=== PATIENT | female | born 1990 | race Caucasian/White ===

== ENCOUNTER → 2022-04-15 16:03 | Outpatient (CLI) | payer MEDICAID, SELFPAY ==
[2022-04-15 19:53] LABS: HCG,Quantitative 21102 mIU/ml (0-5.42)
[2022-04-17 09:01] LABS: Progesterone 11.8 ng/mL (.)
[2022-04-17 22:08] LABS: Neisseria gonorrhoeae, NAA Negative (Negative)
== END ==
PROVIDERS: PCP Obstetrics & Gynecology; Visit Provider Obstetrics & Gynecology
DX: Z34.90 Encounter for supervision of normal pregnancy, unspecified, unspecified trimester (principal)
CPT/HCPCS: 36415; 84144; 84702; 87491; 87591

== ENCOUNTER → 2022-04-18 12:44 | Outpatient (CLI) | payer MEDICAID, SELFPAY ==
[2022-04-18 15:51] LABS: HCG,Quantitative 48035 mIU/ml (0-5.42)
[2022-04-19 08:15] LABS: Progesterone 17.7 ng/mL (.)
== END ==
PROVIDERS: Visit Provider Obstetrics & Gynecology
DX: Z34.90 Encounter for supervision of normal pregnancy, unspecified, unspecified trimester (principal)
CPT/HCPCS: 36415; 84144; 84702

== ENCOUNTER → 2022-04-29 14:45 | Outpatient (CLI) | payer MEDICAID, SELFPAY ==
[2022-04-29 16:51] LABS: Basophils # 0.1 K/mm3 (0-0.2); Basophils % 0.9 % (0.1-2.0); Eosinophils # 0.1 K/mm3 (0.0-0.4); Eosinophils % 1.5 % (0.1-12.0); Hematocrit 37.7 % (37.0-47.0); Hemoglobin 12.8 g/dL (12.2-16.2); Lymphocytes # 1.1 K/mm3 (0.7-4.5); Lymphocytes % 17.9 % (10-50); Mean Corpuscular HGB Conc 33.9 g/dL (31.8-35.4); Mean Corpuscular Hemoglobin 30.3 pg (27.0-31.2); Mean Corpuscular Volume 89.4 fl (81-99); Mean Platelet Volume 10.5 fl (7.4-10.4); Monocytes # 0.3 K/mm3 (0.1-1.0); Monocytes % 3.9 % (1.7-9.3); Neutrophils # 4.9 K/mm3 (1.8-7.8); Neutrophils % 75.9 % (37.0-80.0); Platelet Count 188 K/mm3 (142-424); Red Blood Count 4.22 M/mm3 (4.20-5.40); White Blood Count 6.4 K/mm3 (4.8-10.8)
[2022-05-01 08:23] LABS: HIV Screen 4th Generation wRfx Non Reactive (Non Reactive); Hepatitis B Surface Antigen Negative (Negative); Hepatitis C Antibody 0.2 s/co ratio (0.0-0.9); Rubella Antibodies, IgG 1.23 index (Immune >0.99)
[2022-05-01 10:12] LABS: Rapid Plasma Reagin Ab Titer Non Reactive (NonRea<1:1)
== END ==
PROVIDERS: Visit Provider Obstetrics & Gynecology
DX: Z34.90 Encounter for supervision of normal pregnancy, unspecified, unspecified trimester (principal)
CPT/HCPCS: 36415; 85025; 86592; 86703; 86762; 86850; 87340; 87380; G0432

== ENCOUNTER → 2022-07-29 13:51 | Outpatient (CLI) | payer MEDICAID, SELFPAY ==
--- NOTE | 2022-07-29 13:51 | US_ITS ---
FINAL REPORT CLINICAL HISTORY: anatomy, Ob complete FINDINGS: There is a single live intrauterine gestation. Presentation is breech. The cervix is closed and measures 4.6 cm. Placenta is anterior, grade 1. Three-vessel cord with satisfactory umbilical cord insertion. Four-chamber heart is noted. AMNIOTIC FLUID: Appropriate amount. MEASUREMENTS: ULTRASOUND AGE: 20 weeks 4 days. GESTATION AGE: 20 weeks 5 days. ESTIMATED WEIGHT: 364 g GROWTH PERCENTILE: 38% LMP percentile BPD: 4.8 cm corresponding with 20 weeks 5 days. OFD: 6.1 cm corresponding with 20 weeks 5 days. HC: 17.3 cm corresponding with 19 weeks 6 days. AC: 15.5 cm corresponding with 20 weeks 5 days. FL: 3.4 cm corresponding with 20 weeks 5 days. CEREBELLUM: 2.0 cm corresponding with 20 weeks 5 days. HC/AC: 1.11 CI: 79% FL/BPD: 70% FL/AC: 22% IMPRESSION: Single living IUP with an ultrasound age of 20 weeks 4 days. No gross anomaly identified. Reviewed, Interpreted and Dictated by Sang Marina MD Transcribed by Martah Larsen Authenticated and [facility]
== END ==
PROVIDERS: PCP Obstetrics & Gynecology; Visit Provider Obstetrics & Gynecology
DX: Z34.90 Encounter for supervision of normal pregnancy, unspecified, unspecified trimester (principal)
CPT/HCPCS: 76811

== ENCOUNTER → 2022-09-05 09:36 | Outpatient (CLI) | payer MEDICAID, SELFPAY ==
[2022-09-05 10:06] LABS: Basophils % 0.4 % (0.1-2.0); Eosinophils # 0.2 K/mm3 (0.0-0.4); Eosinophils % 1.6 % (0.1-12.0); Hematocrit 33.4 % (37.0-47.0); Hemoglobin 11.6 g/dL (12.2-16.2); Lymphocytes # 1.4 K/mm3 (0.7-4.5); Lymphocytes % 15.3 % (10-50); Mean Corpuscular HGB Conc 34.7 g/dL (31.8-35.4); Mean Corpuscular Hemoglobin 32.4 pg (27.0-31.2); Mean Corpuscular Volume 93.5 fl (81-99); Mean Platelet Volume 9.3 fl (7.4-10.4); Monocytes # 0.4 K/mm3 (0.1-1.0); Monocytes % 3.9 % (1.7-9.3); Neutrophils # 7.3 K/mm3 (1.8-7.8); Neutrophils % 78.7 % (37.0-80.0); Platelet Count 203 K/mm3 (142-424); Red Blood Count 3.57 M/mm3 (4.20-5.40); Red Cell Distribution Width 14.1 % (11.5-17.5); White Blood Count 9.2 K/mm3 (4.8-10.8)
[2022-09-05 10:19] LABS: Amphetamine/Metha Screen,Urine Negative ng/ml (<1000); Barbiturates Screen,Urine Negative ng/ml (<200)
[2022-09-05 10:20] LABS: Benzodiazepines Screen,Urine Negative ng/ml (<200); Cannabinoid Screen,Urine Negative ng/ml (<50)
[2022-09-05 10:21] LABS: Cocaine Screen,Urine Negative ng/ml (<300)
[2022-09-05 10:22] LABS: Glucose,Fasting 78 mg/dl (74-100)
[2022-09-05 10:22] LABS: Methadone Screen,Urine Negative ng/ml (<300); Opiate Screen,Urine Negative ng/ml (<300)
[2022-09-05 10:23] LABS: Phencyclidine Screen,Urine Negative ng/ml (<25)
[2022-09-05 11:46] LABS: Glucose 1 Hour 96 mg/dL (74-100)
[2022-11-11 20:05] LABS: Buprenorphine POSITIVE
[2022-11-11 20:06] LABS: Buprenorphine POSITIVE; Norbuprenorphine POSITIVE
== END ==
PROVIDERS: PCP Family Medicine; Visit Provider Obstetrics & Gynecology
DX: Z34.90 Encounter for supervision of normal pregnancy, unspecified, unspecified trimester (principal)
CPT/HCPCS: 36415; 80305; 80348; 82951; 85025

== ENCOUNTER → 2022-12-04 07:47 | Outpatient (CLI) | payer MEDICAID, SELFPAY ==
[2022-12-04 08:10] LABS: Basophils # 0.1 K/mm3 (0-0.2); Basophils % 0.9 % (0.1-2.0); Eosinophils # 0.1 K/mm3 (0.0-0.4); Eosinophils % 1.9 % (0.1-12.0); Hematocrit 35.6 % (37.0-47.0); Lymphocytes # 1.4 K/mm3 (0.7-4.5); Lymphocytes % 24.6 % (10-50); Mean Corpuscular HGB Conc 33.6 g/dL (31.8-35.4); Mean Corpuscular Hemoglobin 30.1 pg (27.0-31.2); Mean Corpuscular Volume 89.7 fl (81-99); Mean Platelet Volume 9.2 fl (7.4-10.4); Monocytes # 0.4 K/mm3 (0.1-1.0); Neutrophils # 3.8 K/mm3 (1.8-7.8); Neutrophils % 66.5 % (37.0-80.0); Platelet Count 188 K/mm3 (142-424); Red Blood Count 3.97 M/mm3 (4.20-5.40); Red Cell Distribution Width 13.6 % (11.5-17.5); White Blood Count 5.8 K/mm3 (4.8-10.8)
[2022-12-04 09:09] LABS: Potassium 3.3 mmoL/L (3.5-5.1)
[2022-12-04 09:10] LABS: Alanine Aminotransferase 26 U/L (12-78); Albumin/Globulin Ratio 1.2 (1.1-1.8); Alkaline Phosphatase 148 U/L (38-126); Anion Gap 7.3 mEq/L (5-15); Aspartate Amino Transferase 37 U/L (14-36); Bilirubin,Total 0.7 mg/dl (0.2-1.3); Blood Urea Nitrogen 5 mg/dl (7-17); Calcium 8.1 mg/dl (8.4-10.2); Carbon Dioxide 25 mmol/L (22.0-30.0); Chloride 107 mmol/L (98-107); Estimated Glomerular Filt Rate 114 ml/min (>60); GFR (African American) 138 ML/MIN (>60); Globulin 2.6 g/dL (1.3-3.2); Glucose 83 mg/dl (74-100); Sodium 136 mmol/L (136-145); Total Protein,Serum 5.6 g/dl (6.3-8.2)
== END ==
PROVIDERS: PCP Family Medicine; Visit Provider Obstetrics & Gynecology
DX: Z34.90 Encounter for supervision of normal pregnancy, unspecified, unspecified trimester (principal)
CPT/HCPCS: 36415; 80053; 85025

== ENCOUNTER 2022-12-06 05:07 | Inpatient (IN) | payer MEDICAID, SELFPAY ==
[2022-12-06] VITALS (14 sets, daily range): BP systolic 101–118; BP diastolic 56–76; PULSE 57–81; RESP 15–18; TEMP 36.2–36.9; O2SAT 96–100; BMI 21.9
[2022-12-06 05:43] LABS: Coronavirus 19, PCR Not Detected (NotDetected)
[2022-12-06 05:44] LABS: Influenza A, PCR Not Detected (NotDetected); Influenza B, PCR Not Detected (NotDetected)
[2022-12-06 05:44] LABS: Microscopic, Urine URINE MICROSCOPIC (MICROSCOPIC)
[2022-12-06 05:45] LABS: Appearance,Urine CLEAR (Clear); Blood, Urine Negative (Negative); Glucose,Urine (UA) Negative (Negative); Ketones,Urine 1+ (Negative); Leukocyte Esterase,Urine TRACE (Negative); Nitrate,Urine Negative (Negative); PH,Urine 6.5 (5.0-8.5); Protein,Urine Negative (Negative)
[2022-12-06 05:48] LABS: Bilirubin,Urine Negative (Negative); Color,Urine Dark Yellow (Yellow)
[2022-12-06 05:56] LABS: Amphetamine/Metha Screen,Urine Negative ng/ml (<1000)
[2022-12-06 05:57] LABS: Barbiturates Screen,Urine Negative ng/ml (<200); Benzodiazepines Screen,Urine Negative ng/ml (<200)
[2022-12-06 05:58] LABS: Cannabinoid Screen,Urine Negative ng/ml (<50)
[2022-12-06 05:59] LABS: Cocaine Screen,Urine Negative ng/ml (<300); Methadone Screen,Urine Negative ng/ml (<300)
[2022-12-06 06:00] LABS: Opiate Screen,Urine Negative ng/ml (<300)
[2022-12-06 06:01] LABS: Phencyclidine Screen,Urine Negative ng/ml (<25)
[2022-12-06 06:04] LABS: Bacteria,Urine 1+ /lpf; Mucus,Urine 1+ /lpf
--- NOTE | 2022-12-06 07:07 | HMH.PHAINT1 ---
Pharmacy Intervention Comments: MEDICATION RECONCILIATION COMPLETED ON PATIENT USING EXTERNAL FILL HISTORY FROM PHARMACY AND GENE REPORT. -TERRIE HAGAN, RENAD
--- NOTE | 2022-12-06 07:20 | EXP.OB.APHP ---
OB - H&P: HPI Antepartum History of Present Illness Chief complaint: Scheduled repeat and tubal ligation History of present illness: Mrs Cleo Rosario is a 32 yo at 39w2d, based off of first trimester ultrasound, who presents to [facility] for scheduled repeat and tubal ligation. History of x 1. She is complete with childbearing and desires permanent sterilization. Baby is very active. Admits to irregular contractions. No leakage of fluid or vaginal bleeding. She has history of drug abuse and is on suboxone maintenance therapy. She has had good care. History of Present Criteria for establishing EDC:: based on 1st trimester US only care: good care Ultrasounds: normal mid trimester US Obstetrical complications: none Medical complications: none Labs Blood type: O (+) positive Rubella: immune RPR/VDRL: nonreactive HBsAG: negative [facility] Disclaimer: The information contained in this section may have been updated after the patient was seen, as this information can be updated by other users. Medical History (Updated 12/06/22 @ 07:28 by Sophy De Los Santos DO) Constipation with 39 completed weeks gestation Request for sterilization Social History Smoking Status: Current every day smoker tobacco type: e-cigarettes alcohol intake: never substance use type: denies use and former substance user current occupational status: unemployed Travel in the last 8 weeks: None Review of Systems Review of Systems Review of systems:: pertinent systems reviewed and negative unless documented below *Gastrointestinal Gastrointestinal: Reports constipation *Genitourinary Comments: + irregular contractions Meds Home Medications and Allergies Home Medications Medication Instructions Recorded Confirmed Type buprenorphine 2 mg-naloxone 0.5 mg 1 tab sublingual DAILY WITHDRAWAL 09/18/22 12/06/22 History sublingual tablet ondansetron 4 mg disintegrating 4 mg PO Q6HP PRN nausea and 12/06/22 12/06/22 History tablet vomiting vits no.126-ferrous fum 1 tab PO DAILY Supplement 12/06/22 12/06/22 History 28 mg iron-folic acid 800 mcg tablet (Classic ) New Prescriptions to Start Prescriptions: Allergies Allergy/AdvReac Type Severity Reaction Status Date / Time Penicillins Allergy Verified 11/28/22 13:50 OB - H&P: Exam Physical Exam Vital signs: Temp Pulse Resp BP Pulse Ox 98.5 F 74 18 114/70 100 12/06/22 05:52 12/06/22 05:52 12/06/22 05:52 12/06/22 05:52 12/06/22 05:52 Constitutional no acute distress Routine HEENT Exam Head: Present normocephalic and atraumatic Eye: Absent conjunctivae pink ENT: Present mucous membranes moist Routine Neck Exam Present full ROM Routine Respiratory Exam Present CTA bilaterally and normal respiratory effort Routine Cardiovascular Exam Present RRR Routine Abdominal Exam Present soft (Gravid); Absent tenderness Routine Rectal Exam Patient deferred: visual exam Routine Exam External: Present normal urethra appearance; Absent lesions, vulvar erythema or vulvar tenderness Routine Extremities Exam Present full ROM; Absent edema or calf tenderness Routine Neurological Exam Present alert, oriented X3 and moving all extremities Routine Psychiatric Exam Present normal affect and cooperative Detailed Labor and Delivery Exam Membranes: intact OB - Results Labs Labs: Urine 12/06/22 Range/Units 05:15 Urine Color Dark yellow (Yellow) Urine Appearance Clear (Clear) Urine pH 6.5 (5.0-8.5) Ur Specific [place] 1.020 (1.005-1.030) Urine Protein Negative (Negative) Urine Glucose (UA) Negative (Negative) OB - A/P Antepartum (1) with 39 completed weeks gestation: Status: Acute (2) History of : Status: Acute (3) Suboxone maintenance treatment complic
[2022-12-06 08:00] LABS: Cord Blood PH 7.31 (7.35-7.45)
--- NOTE | 2022-12-06 08:49 | EXP.OP.NOTE ---
Date of procedure: 12/06/22 Pre-op Diagnosis:: 1. with 39 completed weeks gestation 2. History of 3. Suboxone maintenance treatment complicating , antepartum 4. Constipation 5. Request for sterilization Post-op Diagnosis:: 1. with 39 completed weeks gestation 2. History of 3. Suboxone maintenance treatment complicating , antepartum 4. Constipation 5. Request for sterilization Procedure performed:: Repeat low transverse section with bilateral partial salpingectomy Surgeon:: Sophy De Los Santos DO Power System Engineer(s):: Gaye Starr MD [employer] EMERGENCY:: Hong Ennis Anesthesia: spinal Estimated blood loss (mL): 500 Clinical Note:: Mrs Cleo Rosario is a 32 yo at 39w2d, based off of first trimester ultrasound, who presents to [facility] for scheduled repeat and tubal ligation. History of x 1. She is complete with childbearing and desires permanent sterilization. Baby is very active. Admits to irregular contractions. No leakage of fluid or vaginal bleeding.? She has history of drug abuse and is on suboxone maintenance therapy. She has had good care. Operative findings:: 1. Live female baby (baby's name is Antonio Garibay) weighing 6 lb 10 oz, APGARS 8, 9 2. Eric Breeck presentation 3. Grossly normal appearing uterus, bilateral fallopian tubes and ovaries Operative note:: The risks, benefits and alternatives of the procedure were reviewed with the patient. Informed consent was obtained. Patient was taken to the operating room where spinal anesthesia was placed. The patient received 900 mg Clindamycin and Gentamicin 5 mg/kg preoperatively. Patient was placed in dorsal supine position with a leftward tilt. SCDs in place. Cantor catheter was inserted and was draining clear urine prior to the start of the procedure. heart tones were obtained. Patient was then prepped and draped in normal sterile fashion. Allis clamp test was performed to ensure adequate anesthesia. A skin incision was made along prior Pfannenstiel scar. This was carried through to underlying layer of fascia. Fascia was incised in midline, extended laterally with Tran scissors. Superior aspect of fascial incision was grasped with two Nancy clamps, elevated up, and rectus muscle dissected off bluntly and sharply with Tran scissors. The retcus muscle was then in the midline and the peritoneum was entered bluntly with a digit. Peritoneal incision was then extended superiorly and inferiorly with good visualization of the bladder. Calvin retractor was inserted. The lower uterine segment was incised in a transverse fashion. Clear amniotic fluid was noted. Baby was eric breech presentation. Baby was delivered using standard breech delivery techniques without difficulty. Mouth and nares were bulb suctioned. Spontaneous cry was noted. Delayed cord clamping was performed for 60 seconds. The umbilical cord was clamped and cut. The infant was handed to awaiting pediatric staff in stable condition. Dr. Mccoy was present. Apgars were 8(1 min), 9(5 min). Cord blood was obtained. Gentle traction on the umbilical cord and uterine fundal massage delivered the placenta. Placenta was intact. Uterus was cleared of all clots and debris with a moist laparotomy sponge. Corners of the uterine incision were grasped with Allis clamps. The uterine incision was reapproximated with # 1 Vicryl suture in a running, locked stitch. Second layer of the same stitch was used to imbricate the incision. Hemostasis was noted. Posterior cul-de-sac was cleaned with moist laparotomy sponge. (Uterus returned to the abdomen)Gutters cleared of all clots and debris with a moist laparotomy sponge. Attention was then turned to the left fallopian tube, which was grasped with a Orondo clamp and avascular space below the tube was entered using a hemostat. The tube was doubly clamped using hemostat and the portion between the clamps was removed using Metzenbaum sc
--- NOTE | 2022-12-06 09:00 | EXP.ANES.CKL ---
[facility] Disclaimer: The information contained in this section may have been updated after the patient was seen, as this information can be updated by other users. Medical History (Updated 12/06/22 @ 07:28 by Sophy De Los Santos DO) Constipation with 39 completed weeks gestation Request for sterilization Social History Smoking Status: Current every day smoker tobacco type: e-cigarettes alcohol intake: never substance use type: denies use and former substance user current occupational status: unemployed Travel in the last 8 weeks: None [facility] Anesthesia Checklist Patient Identification Patient Identification: Arm Band Structural Data Admitted From: Inpatient Planned Operative Procedure/s: Repeat C/S Consent for Planned Operative Procedure(s) Verified: Yes Verified Documents: Surgical Consent and History and Physical NPO Status Verified Time NPO: 00:00 Additional verifications Anesthesia Reactions: No Airway Assessment C-Spine Mobility Assessed: Yes TMJ Mobility Assessed: Yes Dentition: Good Dentition Neurological Assessment Level of Consciousness: Awake and Alert Anesthesia Plan Anesthesia Risk discussed: Yes Anesthesia Plan: Verified ASA Class: II Anesthesia Type: Spinal (with Bilateral TAP Block)
--- NOTE | 2022-12-06 09:01 | P.PNANES_ITS ---
[facility] Anesthesia Record Part I Anesthesia Record I Intake, IV Amount: 2,000 Estimated blood loss (mL): 500 Urine output (mL): 600 Blood Products used (#): none Blood Pressure: 106/71 SaO2: 96 Pulse Rate: 70 Respiratory Rate: 16 Temperature: 97.2 F Patient is:: Awake and Stable Stable to PACU at:: 08:55
--- NOTE | 2022-12-06 09:45 | HMH.PHAINT1 ---
Pharmacy Intervention Comments: VERIFIED HOME DOSE ON SUBOXONE. PER OB ORDER, PATIENT STATES SHE TAKES TWO OF THE 2MG/0.5MG SUBOXONE TABLETS DAILY. I CALLED THE [facility] AT [phone] AND SPOKE WITH WITH A NURSE. PATIENT IS TO TAKE ONE TABLET OF THE 2MG/0.5MG TABLET SL DAILY PER CURRENT PRESCRIPTION.
--- NOTE | 2022-12-06 10:30 | SUR.OPER ---
0751- Viable infant female born at this time 0758- cord pH of 7.31 per RT to JENNA Denis. Results relayed to MD De Los Santos
--- NOTE | 2022-12-06 10:57 | SW/DCPLANNER ---
Addendum entered by Isela Aldana 12/12/22 07:44: Infant cord screen is positive for Buprenorphine (prescribed). Original Note: I received a referral on this patient regarding suboxone use in . Patient is established with [facility] in [place]. Patient has been established with this clinic for six years. This has been verified by pharmacy. Patient delivered female (Antonio Olivas) on 12/06/22. 's father (Unruly Olivas 88) was not present at time of my visit but is involved per patient. Patient, Unruly, infant and other son (Jasvir Olivas 08/13/16) will reside at [address] [place] [address] in [place] [id number]. Patient's contact number is [phone]. Patient stated that she did have past Social Service involvement with first child due to substance abuse but case is now closed. Patient stated that she will be following up with WIC and is NOT interested in HANDS. Patient stated that she does have the following items: crib, carseat, clothing, diapers and will be . Patient is expected to discharge on 12/08/22 or 12/09/22. OB nursing staff (Conchita) stated that patient is appropriate with . I have asked OB staff to contact me if there are any changes prior to discharge.
--- NOTE | 2022-12-06 11:06 | P.PNANES_ITS ---
[facility] Anesthesia Record Part II Anesthesia Record Part II Discharge Time: 09:35 Destination: Obstetric PACU nurse assessment reviewed?: Yes Patient Condition:: Good Anesthesia Complications:: None Swallowing reflex intact?: Yes Cyanosis?: No Blood Pressure: 109/72 Pulse Rate: 71 Temperature: 97.2 F Mental Status: Alert & Oriented Pain level:: 0 Nausea and/or vomitting:: None Intake, IV Amount: 0
[2022-12-07] VITALS: BP 111/56; PULSE 68; RESP 18; TEMP 36.7; O2SAT 97
[2022-12-07 03:24] VITALS: BP 109/68; PULSE 63; RESP 17; TEMP 36.9; O2SAT 99
[2022-12-07 07:32] LABS: Basophils # 0.1 K/mm3 (0-0.2); Eosinophils # 0.1 K/mm3 (0.0-0.4); Eosinophils % 1.5 % (0.1-12.0); Hematocrit 37.6 % (37.0-47.0); Hemoglobin 12.5 g/dL (12.2-16.2); Lymphocytes # 1.2 K/mm3 (0.7-4.5); Lymphocytes % 13.2 % (10-50); Mean Corpuscular HGB Conc 33.2 g/dL (31.8-35.4); Mean Corpuscular Hemoglobin 30.4 pg (27.0-31.2); Mean Corpuscular Volume 91.7 fl (81-99); Mean Platelet Volume 10.1 fl (7.4-10.4); Monocytes # 0.4 K/mm3 (0.1-1.0); Monocytes % 4.5 % (1.7-9.3); Neutrophils # 7.2 K/mm3 (1.8-7.8); Neutrophils % 79.8 % (37.0-80.0); Platelet Count 172 K/mm3 (142-424)
[2022-12-07 11:44] VITALS: BP 101/62; PULSE 82; RESP 16; TEMP 36.8; O2SAT 97
--- NOTE | 2022-12-07 12:08 | P.PN_ITS ---
Subjective *Date: 12/07/22 *Time: 12:08 Interval history: POD # 1 s/p PLTCS Doing well. Pain controlled. She is breast feeding. Lochia is appropriate. Tolerating regular diet. Voiding without difficulty and passing flatus. Denies fever/chills, chest pain and shortness of breath. No headaches or vision changes. Admits to mild lower extremity swelling. No calf pain. Medical Exam Vital signs and Labs for Last 24 Hours: Vital Signs Temp Pulse Resp BP Pulse Ox 12/07/22 11:44 98.3 F 82 16 101/62 L 97 12/07/22 03:24 98.4 F 63 17 109/68 L 99 12/07/22 00:00 98.1 F 68 18 111/56 L 97 12/06/22 20:30 98.4 F 81 18 101/58 L 98 12/06/22 14:35 16 12/06/22 12:30 98.0 F 66 18 116/56 L 99 Laboratory Results - last 24 hr 12/07/22 07:23: WBC 9.0 D, RBC 4.10 L, Hgb 12.5, Hct 37.6, MCV 91.7, MCH 30.4, MCHC 33.2, RDW 14.0, Plt Count 172, MPV 10.1, Neut % (Auto) 79.8, Lymph % (Auto) 13.2, Hawkins % (Auto) 4.5, Eos % (Auto) 1.5, Baso % (Auto) 1.0, Neut # (Auto) 7.2, Lymph # (Auto) 1.2, Hawkins # (Auto) 0.4, Eos # (Auto) 0.1, Baso # (Auto) 0.1 I & O for Labs for Last 24 Hours: Intake & Output 12/04/22 12/05/22 12/06/22 12/07/22 23:59 23:59 23:59 23:59 Intake Total 1999 / 2000 Output Total 600 / 600 Balance 1400 / 1400 Weight 124 lb Head: Present atraumatic and normocephalic ENT: Present normal exam and mucous membranes moist Neck: Present normal inspection and full ROM Respiratory: Present CTA bilaterally and normal respiratory effort Cardiac: Present Reg Rate and Rhythm GI: Present soft; Absent distention or tenderness Comments:: Uterine fundus firm and below umbilicus. Incision clean/dry/intact with steri strips in place Rectal (female): Present deferred (female): Present deferred Extremities: Present normal inspection, full ROM and edema (trace bilateral lower extremity edema); Absent calf tenderness Neuro: Present Grossly Intact, alert, awake, oriented x 3 and moves all extremities Assessment and Plan *Assessment and plan (1) with 39 completed weeks gestation: Status: Acute Category: Medical Code(s): Z3A.39 - 39 weeks gestation of (2) History of : Status: Acute Category: Surgical Code(s): Z98.891 - History of uterine scar from previous surgery (3) Suboxone maintenance treatment complicating , antepartum: Status: Acute Category: Medical Code(s): O99.320 - Drug use complicating , unspecified trimester; F11.20 - Opioid dependence, uncomplicated (4) Electronic cigarette use: Status: Acute Category: Social Hx Code(s): Z78.9 - Other specified health status (5) Constipation: Status: Acute Category: Medical Code(s): K59.00 - Constipation, unspecified (6) Request for sterilization: Status: Acute Category: Medical Code(s): Z30.2 - Encounter for sterilization Plan Continue routine care Encouraged increased ambulation Plan d/c home POD #2 or POD # 3
[2022-12-07 23:51] VITALS: BP 104/71; PULSE 79; RESP 18; TEMP 36.7; O2SAT 98
[2022-12-08 09:00] VITALS: BP 102/60; PULSE 78; RESP 16; TEMP 36.9; O2SAT 97
--- NOTE | 2022-12-08 09:26 | EXP.ACUTE.PN ---
Subjective *Date: 12/08/22 *Time: 09:26 Interval history: POD # 2 s/p RLTCS and BPS Doing well. Pain controlled. She is breast and bottle feeding. Light lochia. Voiding without difficulty and passing flatus. Denies fever/chills, chest pain and shortness of breath. No headaches or vision changes. Denies swelling. Medical Exam Vital signs and Labs for Last 24 Hours: Vital Signs Temp Pulse Resp BP Pulse Ox 12/08/22 09:00 98.4 F 78 16 102/60 L 97 12/07/22 23:51 98.1 F 79 18 104/71 L 98 12/07/22 11:44 98.3 F 82 16 101/62 L 97 I & O for Labs for Last 24 Hours: Intake & Output 12/05/22 12/06/22 12/07/22 12/08/22 23:59 23:59 23:59 23:59 Intake Total 2000 / 2000 Output Total 600 / 600 Balance 1400 / 1400 Weight 124 lb Microbiology Reports for the Last 24 Hours: Microbiology 12/06/22 07:40 Urine,Catheterized Urine Culture - Preliminary NO GROWTH AFTER 24 HOURS Head: Present atraumatic and normocephalic Neck: Present normal inspection and full ROM Respiratory: Present CTA bilaterally and normal respiratory effort Cardiac: Present Reg Rate and Rhythm GI: Present soft; Absent distention or tenderness Comments:: Uterine fundus firm and below umbilicus. Incision clean/dry/intact with steri strips in place Rectal (female): Present deferred (female): Present deferred Extremities: Present normal inspection and full ROM; Absent edema or calf tenderness Neuro: Present Grossly Intact, alert, awake, oriented x 3 and moves all extremities Assessment and Plan *Assessment and plan (1) with 39 completed weeks gestation: Status: Acute Category: Medical Code(s): Z3A.39 - 39 weeks gestation of (2) S/P : Status: Acute Category: Surgical Code(s): Z98.891 - History of uterine scar from previous surgery (3) History of : Status: Acute Category: Surgical Code(s): Z98.891 - History of uterine scar from previous surgery (4) Suboxone maintenance treatment complicating , antepartum: Status: Acute Category: Medical Code(s): O99.320 - Drug use complicating , unspecified trimester; F11.20 - Opioid dependence, uncomplicated (5) Electronic cigarette use: Status: Acute Category: Social Hx Code(s): Z78.9 - Other specified health status (6) Request for sterilization: Status: Acute Category: Medical Code(s): Z30.2 - Encounter for sterilization Plan Continue routine care Encouraged increased ambulation Plan discharge home tomorrow
[2022-12-08 20:15] VITALS: BP 119/68; PULSE 82; RESP 17; TEMP 36.9; O2SAT 98
[2022-12-09 03:41] VITALS: BP 115/70; PULSE 63; RESP 18; TEMP 36.9; O2SAT 98
[2022-12-09 08:49] VITALS: BP 116/74; PULSE 83; RESP 18; TEMP 37; O2SAT 96
--- NOTE | 2022-12-09 08:52 | EXP.DC.SUM ---
General Admission date:: 12/06/22 Discharge date: 12/09/22 HPI HPI HPI: POD # 3 s/p RLTCS with BPS Doing well. Pain controlled. Light lochia. Breast and bottle feeding. Voiding without difficulty. Passing flatus. Tolerating regular diet. Denies fever/chills, chest pain and shortness of breath. No headaches, vision changes or swelling. Hospital Course Hospital Course Hospital Course: Mrs Cleo Rosario is a 32 yo at 39w2d, based off of first trimester ultrasound, who presents to [facility] for scheduled repeat and tubal ligation. History of x 1. She is complete with childbearing and desired permanent sterilization. She has had good care. She underwent repeat low transverse section with bilateral partial salpingectomy on 12/06/22. She delivered a live female baby weighing 6 lb 10 oz, AGPARS 8, 9. EBL 500 mL. POD # 1 she was doing okay. Pain somewhat controlled. Appropriate lochia. Breast feeding. Tolerating regular diet. Voiding without difficulty and passing flatus. Vital signs stable. Heart was regular rate and rhythm. Lungs were clear to auscultation. Abdomen was apporpriate tenderness to palpation, no distension. She had trace bilateral lower extremity edema. No calf tenderness to palpation. POD # 2 She was doing well. Pain controlled. Light lochia. Breast and bottle feeding. Tolerating regular diet. Voiding without difficulty and passing flatus. Vital signs stable. Heart was regular rate and rhythm. Lungs were clear to auscultation. Abdomen was soft, nontender, no distension. No lower extremity edema. POD # 3 She was doing well. Pain controlled. Light lochia. Breast and bottle feeding. Tolerating regular diet. Voiding without difficulty and passing flatus. Vital signs stable. Heart was regular rate and rhythm. Lungs were clear to auscultation. Abdomen was soft, nontender, no distension. No lower extremity edema. 12/04/22: Hgb 12.0, Hct 35.6 12/07/22: Hgb 12.5, Hct 37.6 Exam Data for Last 24 hours Vital signs and Labs for Last 24 Hours: Temp Pulse Resp BP Pulse Ox 98.4 F 63 18 115/70 98 12/09/22 03:41 12/09/22 03:41 12/09/22 03:41 12/09/22 03:41 12/09/22 03:41 I & O for Last 24 hours: Intake & Output 12/06/22 12/07/22 12/08/22 12/09/22 23:59 23:59 23:59 23:59 Intake Total 1999 / 1999 Output Total 600 / 600 Balance 1400 / 1400 Weight 124 lb Microbiology Reports for the Last 24 Hours: Microbiology 12/06/22 07:40 Urine,Catheterized Urine Culture - Final NO GROWTH AFTER 48 HOURS Constitutional Constitutional: no acute distress and cooperative *Routine HEENT Exam Head: Present normocephalic Eye: Absent conjunctivae pink ENT: Present mucous membranes moist and dentition normal *Routine Neck Exam Neck: Present full ROM *Routine Respiratory Exam Respiratory: Present CTA bilaterally and normal respiratory effort *Routine Cardiovascular Exam Cardiovascular: Present RRR *Routine Abdominal Exam Abdominal: Present soft and normoactive bowel sounds; Absent tenderness or distended Comments: Uterine fundus firm and below umbilicus, Pfannenstiel incision clean/dry/intact with steri strips in place *Routine Rectal Exam Patient deferred: visual exam *Routine Exam Patient deferred: external exam *Routine Extremities Exam Extremities: Present full ROM; Absent edema or calf tenderness *Routine Neurological Exam Neurological: Present alert, oriented X3, CN II-XII intact and moving all extremities Routine Psychiatric Exam Psychiatric: Present normal affect and cooperative DS: Diagnosis Discharge Diagnosis (1) with 39 completed weeks gestation: Status: Acute (2) S/P : Status: Acute (3) History of : Status: Acute (4) Suboxone maintenance treatment complicating , antepartum: Status: Acute (5) Electronic cigarette use: Status: Acute (6) Request for s
[2022-12-09 18:07] LABS: Buprenorphine, Urine Positive (Cutoff=10)
== END 2022-12-09 09:45 | disposition home or self-care (01) | DRG 784 ==
PROVIDERS: Admitting Provider Obstetrics & Gynecology; PCP Family Medicine; Visit Provider Obstetrics & Gynecology
PROC: 10D00Z1 Extraction of Products of Conception, Low, Open Approach (ICD-10-PCS; principal; 2022-12-06 07:30)
DX: O32.1XX0 Maternal care for breech presentation, not applicable or unspecified (principal); F11.20 Opioid dependence, uncomplicated; Z37.0 Single live birth; O34.211 Maternal care for low transverse scar from previous cesarean delivery; N85.8 Other specified noninflammatory disorders of uterus; Z3A.39 39 weeks gestation of pregnancy; O99.320 Drug use complicating pregnancy, unspecified trimester; K59.00 Constipation, unspecified; Z30.2 Encounter for sterilization
CPT/HCPCS: 59514; 58700; 36415; 59025; 80053; 80305; 80307; 81001; 82800; 85025; 86850; 87086; 88302; 94761; C9290; C9803; G0283; J0574; J2405; U0003; U0005

== ENCOUNTER 2023-04-07 11:30 | Emergency (ER) | payer MEDICAID, SELFPAY ==
[2023-04-07 12:44] VITALS: BP 110/61; PULSE 78; RESP 16; TEMP 36.8; O2SAT 100; BMI 19.5
--- NOTE | 2023-04-07 12:45 | EXP.UTC ---
Discharge Plan Disposition Patient Disposition: Home Health Service Condition: Good Prescriptions Prescriptions: New phenazopyridine 200 mg Tablet 200 mg PO TID 2 Days Qty: 6 0RF sulfamethoxazole-trimethoprim [Bactrim DS] 800-160 mg Tablet 1 tab PO BID Qty: 14 0RF No Action buprenorphine-naloxone 2-0.5 mg tablet, sublingual 1 tab SL DAILY Referrals Follow up/Referrals: Provider,Referral, MD [Primary Care Provider] - See instructions Activity Restrictions/Add. Instructions Additional Instructions/Restrictions: Drink plenty of fluids. Take tylenol or ibuprofen for pain or fever. Take the medications as directed. Follow up with your regular doctor. GO TO THE ER FOR ANY WORSENING SYMPTOMS The pyridium will make your urine turn orange, this is an expected side effect. It will stain your clothes if it comes into contact with them. We will culture the urine. That will tell what bacteria is causing your infection and which antibiotics will treat it best. Sometimes the first antibiotic we prescribe turns out to not work against different bacteria. So, make sure you follow up within 3 days if you are not getting better. Clinical Impressions Clinical Impression: UTI (urinary tract infection) Discharge ED Provider: Howie Johnson [facility] General Stated complaint: possible UTI Time Seen by Provider: 04/07/23 12:45 History of Present Illness Provider Complaint: She states that for the past 2 days she has had low back pain, lower abdominal pain, dysuria, and urinary frequency. Related Data Home Medications Medication Instructions Recorded Confirmed buprenorphine 2 mg-naloxone 0.5 mg 1 tab sublingual DAILY WITHDRAWAL 09/18/22 04/07/23 sublingual tablet Previous Rx's Medication Instructions Recorded phenazopyridine 200 mg tablet 200 mg PO TID 2 days #6 tabs 04/07/23 sulfamethoxazole 800 1 tab PO BID #14 tabs 04/07/23 mg-trimethoprim 160 mg tablet (Bactrim DS) Allergies Allergy/AdvReac Type Severity Reaction Status Date / Time Penicillins Allergy Verified 04/07/23 12:44 [facility] Disclaimer: The information contained in this section may have been updated after the patient was seen, as this information can be updated by other users. Medical History Constipation History of sterilization procedure with 39 completed weeks gestation Request for sterilization Surgical History History of Hx of tubal ligation S/P Family History Other No significant family history Social History Smoking Status: Current every day smoker tobacco type: e-cigarettes alcohol intake: never substance use type: denies use and former substance user current occupational status: unemployed Travel in the last 8 weeks: None ROS Obtained: Yes All systems reviewed & no additional complaints except as documented Constitutional Constitutional: Reports system reviewed and no additional complaints, except as documented, Denies chills and Denies fever(s) Eyes Eyes: Denies eye discharge ENT Ears, Nose, Mouth, and Throat: Denies dysphagia, Denies sore throat and Denies throat swelling Cardiovascular Cardiovascular: Denies chest pain and Denies dyspnea Respiratory Respiratory: Denies chest congestion, Denies cough and Denies dyspnea Gastrointestinal Gastrointestingal: Denies abdominal pain, constipation, diarrhea, dysphagia, nausea or vomiting Genitourinary Female Genitourinary: Reports as per HPI, Reports dysuria, Reports urinary frequency, Denies urinary incontinence, Reports urinary hesitancy and Reports urinary urgency Musculoskeletal Musculoskeletal: Denies arthralgias and Reports back pain Integumentary/Breasts Skin/Breast: Denies rash Neuro
[2023-04-07 12:52] LABS: Apearance,Urine Cloudy (Clear); Color,Urine Orange (Yellow); Specific Gravity, Urine 1.025 (1.005-1.030)
[2023-04-07 12:53] LABS: Bilirubin,Urine 1+ (Negative); Blood, Urine Trace (Negative); Glucose,Urine (UA) 1+ (Negative); Ketones,Urine Negative (Negative); Protein,Urine 3+ (Negative); UTC Leukocyte Esterase,Urine 1+ (Negative); UTC Nitrate,Urine Positive (Negative); Urobilinogen,Urine 1 EU/dl (0.2)
[2023-04-07 13:16] VITALS: BP 110/61; PULSE 78; RESP 16; TEMP 36.8; O2SAT 100
== END 2023-04-07 13:19 | disposition home health service (06) ==
PROVIDERS: Emergency Provider Nurse Practitioner Family
DX: N39.0 Urinary tract infection, site not specified (principal); M54.59 Other low back pain; F17.290 Nicotine dependence, other tobacco product, uncomplicated
CPT/HCPCS: 81003; 87086; 99204; 99212; G0463